=== PATIENT | female | born 1990 | race Two or more races ===

== ENCOUNTER 2020-10-01 09:11 | Day surgery (SDC) | payer OTHER | END 2020-10-01 19:25 | disposition home or self-care (01) | LOC: CIR.AMB 09:11 | PROVIDERS: ATTEND Obstetrics & Gynecology Obstetrics | DX: N87.0 Mild cervical dysplasia (principal); Z20.822 Contact with and (suspected) exposure to COVID-19 ==

== ENCOUNTER 2021-07-29 06:00 | Day surgery (SDC) | payer OTHER ==
[2021-07-29] MEDS ORDERED: ACETAMINOPHEN500 M1 PO (12:42)
== END 2021-07-29 15:35 | disposition home or self-care (01) ==
LOC: CIR.AMB 06:00
PROVIDERS: ATTEND Obstetrics & Gynecology
DX: Z30.2 Encounter for sterilization (principal)